=== PATIENT | female | born 1965 | race Native Hawaiian/Other Pacific Islander ===

== ENCOUNTER 2018-07-28 10:53 | Outpatient (CLI) | payer BC | END 2018-07-28 22:39 | disposition home or self-care (01) | LOC: RAD 10:53 | DX: M25.511 Pain in right shoulder (principal) ==

== ENCOUNTER 2022-10-15 21:28 | Observation (INO) | payer BC ==
[~2022-10-15] VITALS: Ht 162.6 cm; Wt 93.0 kg
[2022-10-15 21:42] VITALS: BP 151/79; TEMP 98.5
[2022-10-15 23:36] LABS: PLATELET COUNT 216 K/uL (152-353)
[2022-10-15 23:49] LABS: POTASSIUM 3.6 mmol/L (3.6-5.2)
[2022-10-16 01:54] VITALS: BP 181/97; TEMP 99.9; Ht 162.6 cm; Wt 93.0 kg
[2022-10-16 03:35] VITALS: BP 120/68; TEMP 99.8
[2022-10-16 05:42] LABS: PLATELET COUNT 201 K/uL (152-353)
[2022-10-16 05:58] LABS: POTASSIUM 3.6 mmol/L (3.6-5.2)
[2022-10-16 08:00] VITALS: BP 155/86; TEMP 98.9
[2022-10-16] MEDS ORDERED: MONT10TA PO (08:23)
[2022-10-16] MEDS ORDERED: WOMENS ONE DAILY PO (08:24)
[2022-10-16] MEDS ORDERED: ALLEGRA ALRG180 M1 PO (08:24)
[2022-10-16] MEDS ORDERED: ZINC50 M1 PO (08:25)
== END 2022-10-16 11:40 | disposition short-term general hospital (02) ==
LOC: ED 21:28 → MED/SURG 10-16 01:05
PROVIDERS: Family Medicine; ADMIT Nurse Practitioner Family; ATTEND Internal Medicine
DX: K56.699 Other intestinal obstruction unspecified as to partial versus complete obstruction (principal); K42.9 Umbilical hernia without obstruction or gangrene; R10.9 Unspecified abdominal pain; D72.828 Other elevated white blood cell count
CPT/HCPCS: 36415; 80048; 80053; 81000; 81025; 83690; 85027; 96361; 96374; 96375; 99221; 99284; G0378; J0610; J1885; J2270; J2405; J2550; J3490; Q9963